=== PATIENT | male | born 1960 | race Caucasian/White ===

== ENCOUNTER 2022-08-02 23:35 | Inpatient (IN) | payer MEDICARE, MEDICAID ==
[~2022-08-02] VITALS: Ht 165.1 cm; Wt 90.3 kg
[2022-08-02 23:45] VITALS: BP 154/76
[2022-08-03 00:30] VITALS: BP 142/78
[2022-08-03] MEDS ORDERED: ONDANSETRON HCL 4MG/2ML INJ IV PRN (01:15)
[2022-08-03] MEDS ORDERED: OXYCODONE HCL 5MG TABLET PO PRN ×2 (01:15)
[2022-08-03] MEDS ORDERED: POLYETHYLENE GLYCOL 3350 (17GM) 1 DOSE PACK PO PRN (01:15)
[2022-08-03] MEDS ORDERED: POLYVINYL ALCOHOL OPHTH DROPS 15ML BOTHEYE PRN (01:15)
[2022-08-03] MEDS ORDERED: CYCLOPENTOLATE HCL 1% OPHTH DROPS 2ML RIGHTEYE SCH (01:15)
[2022-08-03] MEDS ORDERED: HYDRALAZINE HCL 10MG TABLET PO PRN (01:15)
[2022-08-03] MEDS ORDERED: ACETAMINOPHEN 325MG TABLET PO PRN (01:15)
[2022-08-03] MEDS ORDERED: DEXTROSE 50% WATER 50ML SYRINGE IV PRN (02:00)
[2022-08-03 06:40] LABS: CHLORIDE 97 mEq/L (98-107)
[2022-08-03 06:50] LABS: EOSINOPHILS % 3.1 % (0.0-5.0); HEMATOCRIT. 27.8 % (42.0-52.0); HEMOGLOBIN. 9.6 g/dL (14.0-18.0); LYMPHOCYTES % 32.9 % (20.0-50.0); MEAN CORPUSCULAR HEMOGLOBIN 33.2 pg (28.0-32.0); MEAN CORPUSCULAR VOLUME 96.5 fL (80.0-94.0); MEAN PLATELET VOLUME 7.6 fl (7.4-10.4); MONOCYTES % 7.5 % (2.0-8.0); NEUTROPHILS % 55.5 % (40.0-76.0); PLATELET 331 x1000/uL (130-400); RED BLOOD CELL COUNT 2.88 mill/uL (4.7-6.1); RED CELL DISTRIBUTION WIDTH 13.8 % (11.6-14.6)
[2022-08-03] MEDS: BLOOD SUGAR DIAGNOSTIC STRIP TEST SCH ×4 (06:55→21:00)
[2022-08-03 08:00] VITALS: BP 118/61
[2022-08-03] MEDS: INSULIN LISPRO 100 UNITS/ML SUBCUT SCH ×4 (08:30→21:34)
[2022-08-03] MEDS: SENNOSIDES 8.6MG TABLET PO SCH (09:00)
[2022-08-03] MEDS: DORZOLAM/TIMOLOL 2.23/0.68% OPHTH DROPS 10ML BOTHEYE SCH ×2 (09:00→21:00)
[2022-08-03] MEDS: CALCIUM ACETATE 667MG CAPSULE PO SCH ×3 (10:45→18:19)
[2022-08-03] MEDS: CYCLOPENTOLATE HCL 1% OPHTH DROPS 2ML RIGHTEYE SCH ×2 (10:47→21:21)
[2022-08-03] MEDS: DOCUSATE SODIUM 100MG CAPSULE PO SCH ×2 (10:47→18:19)
[2022-08-03] MEDS: HEPARIN 5000 UNITS/ML VIAL SUBCUT SCH ×2 (10:50→21:18)
[2022-08-03] MEDS: ATORVASTATIN CALCIUM 40MG TABLET PO SCH (10:51)
[2022-08-03 13:23] LABS: HEPATITIS B SURFACE ANTIGEN NEGATIVE
[2022-08-03] MEDS: SIMBRINZA OP SCH ×2 (14:24→18:20)
[2022-08-03 19:57] VITALS: BP 159/81
[2022-08-03] MEDS: MELATONIN 3MG TABLET PO PRN (21:58)
[2022-08-03] MEDS: INSULIN GLARGINE 100 UNITS/ML SUBCUT SCH (22:05)
[2022-08-04] VITALS (10 sets, daily range): BP systolic 124–157; BP diastolic 71–86
[2022-08-04 06:11] LABS: BASOPHILS % 1.1 % (0.0-2.0); EOSINOPHILS % 3.2 % (0.0-5.0); HEMATOCRIT. 25.7 % (42.0-52.0); HEMOGLOBIN. 8.8 g/dL (14.0-18.0); LYMPHOCYTES % 37.3 % (20.0-50.0); MEAN CORPUSCULAR HEMOGLOBIN 33.1 pg (28.0-32.0); MEAN CORPUSCULAR VOLUME 96.6 fL (80.0-94.0); MEAN PLATELET VOLUME 7.5 fl (7.4-10.4); MONOCYTES % 6.4 % (2.0-8.0); PLATELET 333 x1000/uL (130-400); RED BLOOD CELL COUNT 2.66 mill/uL (4.7-6.1); RED CELL DISTRIBUTION WIDTH 13.9 % (11.6-14.6)
[2022-08-04] MEDS: BLOOD SUGAR DIAGNOSTIC STRIP TEST SCH ×4 (06:30→21:00)
[2022-08-04 07:03] LABS: CHLORIDE 96 mEq/L (98-107)
[2022-08-04 07:12] LABS: FOLIC ACID (FOLATE) SERUM 13.4 ng/mL (>5.38)
[2022-08-04 07:36] LABS: TOTAL IRON BINDING CAPACITY 138 ug/dL (250-450)
[2022-08-04] MEDS: CYCLOPENTOLATE HCL 1% OPHTH DROPS 2ML LEFTEYE SCH ×2 (08:45→21:19)
[2022-08-04] MEDS: DORZOLAM/TIMOLOL 2.23/0.68% OPHTH DROPS 10ML BOTHEYE SCH ×2 (08:50→21:19)
[2022-08-04] MEDS: SIMBRINZA OP SCH ×3 (08:52→16:07)
[2022-08-04] MEDS: CYCLOPENTOLATE HCL 1% OPHTH DROPS 2ML RIGHTEYE SCH (08:53)
[2022-08-04] MEDS: DOCUSATE SODIUM 100MG CAPSULE PO SCH ×2 (08:54→16:07)
[2022-08-04] MEDS: CALCIUM ACETATE 667MG CAPSULE PO SCH ×3 (08:54→16:07)
[2022-08-04] MEDS: SENNOSIDES 8.6MG TABLET PO SCH (08:54)
[2022-08-04] MEDS: ATORVASTATIN CALCIUM 40MG TABLET PO SCH (08:54)
[2022-08-04] MEDS: HEPARIN 5000 UNITS/ML VIAL SUBCUT SCH ×2 (08:55→21:21)
[2022-08-04] MEDS: INSULIN LISPRO 100 UNITS/ML SUBCUT SCH ×4 (09:00→21:00)
[2022-08-04] MEDS: LACTULOSE 20G/30ML UDC PO SCH ×2 (16:07→17:00)
[2022-08-04] MEDS: MELATONIN 3MG TABLET PO PRN ×2 (21:20→21:21)
[2022-08-04] MEDS: EPOETIN ALFA-EPBX 4,000 UNIT/ML VIAL SUBCUT SCH (21:22)
[2022-08-04] MEDS: SENNOSIDES/DOCUSATE SOD 8.6/50MG TABLET PO SCH (21:23)
[2022-08-04] MEDS: INSULIN GLARGINE 100 UNITS/ML SUBCUT SCH (22:47)
[2022-08-05] MEDS: BLOOD SUGAR DIAGNOSTIC STRIP TEST SCH ×4 (06:30→21:47)
[2022-08-05] MEDS: LACTULOSE 20G/30ML UDC PO SCH ×3 (07:00→13:00)
[2022-08-05 07:41] LABS: EOSINOPHILS % 2.4 % (0.0-5.0); HEMATOCRIT. 26.8 % (42.0-52.0); HEMOGLOBIN. 9.2 g/dL (14.0-18.0); MEAN CORPUSCULAR HEMOGLOBIN 32.9 pg (28.0-32.0); MEAN CORPUSCULAR VOLUME 95.9 fL (80.0-94.0); MEAN PLATELET VOLUME 7.6 fl (7.4-10.4); MONOCYTES % 7.2 % (2.0-8.0); NEUTROPHILS % 55.4 % (40.0-76.0); PLATELET 324 x1000/uL (130-400); RED BLOOD CELL COUNT 2.79 mill/uL (4.7-6.1)
[2022-08-05 08:00] VITALS: BP 149/77
[2022-08-05] MEDS: CALCIUM ACETATE 667MG CAPSULE PO SCH ×3 (08:09→16:04)
[2022-08-05] MEDS: ATORVASTATIN CALCIUM 40MG TABLET PO SCH (08:09)
[2022-08-05] MEDS: DOCUSATE SODIUM 100MG CAPSULE PO SCH ×2 (08:09→16:04)
[2022-08-05] MEDS: HEPARIN 5000 UNITS/ML VIAL SUBCUT SCH ×2 (08:10→21:24)
[2022-08-05] MEDS: CYCLOPENTOLATE HCL 1% OPHTH DROPS 2ML LEFTEYE SCH ×2 (08:16→21:25)
[2022-08-05] MEDS: DORZOLAM/TIMOLOL 2.23/0.68% OPHTH DROPS 10ML BOTHEYE SCH ×2 (08:16→21:25)
[2022-08-05] MEDS: SIMBRINZA OP SCH ×3 (08:17→16:05)
[2022-08-05] MEDS: INSULIN LISPRO 100 UNITS/ML SUBCUT SCH ×3 (12:41→21:47)
[2022-08-05] MEDS: ERGOCALCIFEROL 50000UNITS CAPSULE PO SCH (12:42)
[2022-08-05 20:00] VITALS: BP 150/73
[2022-08-05] MEDS: SENNOSIDES/DOCUSATE SOD 8.6/50MG TABLET PO SCH (21:23)
[2022-08-05] MEDS: INSULIN GLARGINE 100 UNITS/ML SUBCUT SCH (21:46)
[2022-08-06] VITALS (11 sets, daily range): BP systolic 96–166; BP diastolic 59–87
[2022-08-06] MEDS: BLOOD SUGAR DIAGNOSTIC STRIP TEST SCH ×4 (05:48→21:10)
[2022-08-06] MEDS: DOCUSATE SODIUM 100MG CAPSULE PO SCH ×2 (09:00→17:00)
[2022-08-06] MEDS: INSULIN LISPRO 100 UNITS/ML SUBCUT SCH ×4 (09:00→21:00)
[2022-08-06] MEDS: ATORVASTATIN CALCIUM 40MG TABLET PO SCH (09:00)
[2022-08-06] MEDS: SIMBRINZA OP SCH ×3 (10:58→18:23)
[2022-08-06] MEDS: CYCLOPENTOLATE HCL 1% OPHTH DROPS 2ML LEFTEYE SCH ×2 (10:59→21:00)
[2022-08-06] MEDS: DORZOLAM/TIMOLOL 2.23/0.68% OPHTH DROPS 10ML BOTHEYE SCH ×2 (11:00→21:00)
[2022-08-06] MEDS: CALCIUM ACETATE 667MG CAPSULE PO SCH ×3 (11:01→18:23)
[2022-08-06] MEDS: HEPARIN 5000 UNITS/ML VIAL SUBCUT SCH ×2 (11:01→22:00)
[2022-08-06] MEDS: INSULIN GLARGINE 100 UNITS/ML SUBCUT SCH (21:46)
[2022-08-06] MEDS: SENNOSIDES/DOCUSATE SOD 8.6/50MG TABLET PO SCH (22:00)
[2022-08-06] MEDS: EPOETIN ALFA-EPBX 4,000 UNIT/ML VIAL SUBCUT SCH (22:00)
[2022-08-07] MEDS: MELATONIN 3MG TABLET PO PRN (00:02)
[2022-08-07] MEDS: INSULIN LISPRO 100 UNITS/ML SUBCUT SCH ×4 (06:54→21:53)
[2022-08-07] MEDS: BLOOD SUGAR DIAGNOSTIC STRIP TEST SCH ×4 (06:54→21:54)
[2022-08-07 07:52] LABS: BASOPHILS % 1.3 % (0.0-2.0); EOSINOPHILS % 2.8 % (0.0-5.0); HEMATOCRIT. 26.9 % (42.0-52.0); HEMOGLOBIN. 9.1 g/dL (14.0-18.0); MEAN CORPUSCULAR HEMOGLOBIN 32.7 pg (28.0-32.0); MEAN CORPUSCULAR VOLUME 96.4 fL (80.0-94.0); MEAN PLATELET VOLUME 7.6 fl (7.4-10.4); NEUTROPHILS % 52.9 % (40.0-76.0); PLATELET 310 x1000/uL (130-400); RED BLOOD CELL COUNT 2.79 mill/uL (4.7-6.1); RED CELL DISTRIBUTION WIDTH 13.7 % (11.6-14.6)
[2022-08-07 08:00] VITALS: BP 143/72
[2022-08-07] MEDS: DOCUSATE SODIUM 100MG CAPSULE PO SCH ×2 (08:26→17:00)
[2022-08-07] MEDS: SIMBRINZA OP SCH ×3 (11:30→17:00)
[2022-08-07] MEDS: CYCLOPENTOLATE HCL 1% OPHTH DROPS 2ML LEFTEYE SCH ×2 (11:31→21:40)
[2022-08-07] MEDS: DORZOLAM/TIMOLOL 2.23/0.68% OPHTH DROPS 10ML BOTHEYE SCH ×2 (11:31→21:40)
[2022-08-07] MEDS: ATORVASTATIN CALCIUM 40MG TABLET PO SCH (11:33)
[2022-08-07] MEDS: CALCIUM ACETATE 667MG CAPSULE PO SCH ×3 (11:33→17:00)
[2022-08-07] MEDS: HEPARIN 5000 UNITS/ML VIAL SUBCUT SCH ×2 (11:33→21:39)
[2022-08-07 19:54] VITALS: BP 142/68
[2022-08-07] MEDS: SENNOSIDES/DOCUSATE SOD 8.6/50MG TABLET PO SCH (21:39)
[2022-08-07] MEDS: INSULIN GLARGINE 100 UNITS/ML SUBCUT SCH (21:54)
[2022-08-08] VITALS (11 sets, daily range): BP systolic 99–179; BP diastolic 63–90
[2022-08-08 06:09] LABS: EOSINOPHILS % 2.6 % (0.0-5.0); HEMATOCRIT. 26.9 % (42.0-52.0); HEMOGLOBIN. 9.2 g/dL (14.0-18.0); LYMPHOCYTES % 38.6 % (20.0-50.0); MEAN CORPUSCULAR HEMOGLOBIN 33.2 pg (28.0-32.0); MEAN CORPUSCULAR VOLUME 96.6 fL (80.0-94.0); MEAN PLATELET VOLUME 7.5 fl (7.4-10.4); MONOCYTES % 8.5 % (2.0-8.0); NEUTROPHILS % 49.3 % (40.0-76.0); PLATELET 315 x1000/uL (130-400); RED BLOOD CELL COUNT 2.78 mill/uL (4.7-6.1); RED CELL DISTRIBUTION WIDTH 14.1 % (11.6-14.6)
[2022-08-08] MEDS: BLOOD SUGAR DIAGNOSTIC STRIP TEST SCH ×3 (06:46→20:33)
[2022-08-08] MEDS: INSULIN LISPRO 100 UNITS/ML SUBCUT SCH ×4 (06:46→21:05)
[2022-08-08] MEDS: CALCIUM ACETATE 667MG CAPSULE PO SCH ×3 (09:20→17:50)
[2022-08-08] MEDS: ATORVASTATIN CALCIUM 40MG TABLET PO SCH (09:20)
[2022-08-08] MEDS: DOCUSATE SODIUM 100MG CAPSULE PO SCH ×2 (09:20→17:49)
[2022-08-08] MEDS: HEPARIN 5000 UNITS/ML VIAL SUBCUT SCH ×2 (09:21→20:55)
[2022-08-08] MEDS: CYCLOPENTOLATE HCL 1% OPHTH DROPS 2ML LEFTEYE SCH ×2 (09:30→20:56)
[2022-08-08] MEDS: DORZOLAM/TIMOLOL 2.23/0.68% OPHTH DROPS 10ML BOTHEYE SCH ×2 (09:30→20:56)
[2022-08-08] MEDS: SIMBRINZA OP SCH ×3 (09:30→17:50)
[2022-08-08] MEDS: SENNOSIDES/DOCUSATE SOD 8.6/50MG TABLET PO SCH (20:55)
[2022-08-08] MEDS: INSULIN GLARGINE 100 UNITS/ML SUBCUT SCH (21:04)
[2022-08-09] MEDS: BLOOD SUGAR DIAGNOSTIC STRIP TEST SCH ×4 (06:30→21:00)
[2022-08-09] MEDS: INSULIN LISPRO 100 UNITS/ML SUBCUT SCH ×4 (07:51→22:28)
[2022-08-09] MEDS: DOCUSATE SODIUM 100MG CAPSULE PO SCH ×2 (09:30→17:54)
[2022-08-09] MEDS: ATORVASTATIN CALCIUM 40MG TABLET PO SCH (09:30)
[2022-08-09] MEDS: SIMBRINZA OP SCH ×3 (09:30→17:48)
[2022-08-09] MEDS: CALCIUM ACETATE 667MG CAPSULE PO SCH ×3 (09:30→17:47)
[2022-08-09] MEDS: CYCLOPENTOLATE HCL 1% OPHTH DROPS 2ML LEFTEYE SCH ×2 (09:31→22:20)
[2022-08-09] MEDS: DORZOLAM/TIMOLOL 2.23/0.68% OPHTH DROPS 10ML BOTHEYE SCH ×2 (09:31→22:21)
[2022-08-09] MEDS: HEPARIN 5000 UNITS/ML VIAL SUBCUT SCH ×2 (09:32→22:19)
[2022-08-09 20:00] VITALS: BP 154/76
[2022-08-09] MEDS: SENNOSIDES/DOCUSATE SOD 8.6/50MG TABLET PO SCH (22:18)
[2022-08-09] MEDS: EPOETIN ALFA-EPBX 4,000 UNIT/ML VIAL SUBCUT SCH (22:19)
[2022-08-09] MEDS: INSULIN GLARGINE 100 UNITS/ML SUBCUT SCH (22:31)
[2022-08-10] MEDS: INSULIN LISPRO 100 UNITS/ML SUBCUT SCH ×4 (06:04→21:25)
[2022-08-10] MEDS: BLOOD SUGAR DIAGNOSTIC STRIP TEST SCH ×4 (06:04→21:15)
[2022-08-10 06:34] LABS: BASOPHILS % 1.2 % (0.0-2.0); HEMATOCRIT. 26.7 % (42.0-52.0); HEMOGLOBIN. 9.2 g/dL (14.0-18.0); LYMPHOCYTES % 38.8 % (20.0-50.0); MEAN CORPUSCULAR HEMOGLOBIN 33.1 pg (28.0-32.0); MEAN CORPUSCULAR VOLUME 96.4 fL (80.0-94.0); MEAN PLATELET VOLUME 7.4 fl (7.4-10.4); MONOCYTES % 8.4 % (2.0-8.0); NEUTROPHILS % 48.6 % (40.0-76.0); PLATELET 307 x1000/uL (130-400); RED BLOOD CELL COUNT 2.77 mill/uL (4.7-6.1); RED CELL DISTRIBUTION WIDTH 13.8 % (11.6-14.6)
[2022-08-10 08:00] VITALS: BP 145/68
[2022-08-10 08:16] LABS: PHOSPHORUS 3.2 mg/dL (2.5-4.9)
[2022-08-10] MEDS: SIMBRINZA OP SCH ×3 (08:24→18:00)
[2022-08-10] MEDS: DOCUSATE SODIUM 100MG CAPSULE PO SCH ×2 (08:24→17:57)
[2022-08-10] MEDS: ATORVASTATIN CALCIUM 40MG TABLET PO SCH (08:24)
[2022-08-10] MEDS: DORZOLAM/TIMOLOL 2.23/0.68% OPHTH DROPS 10ML BOTHEYE SCH ×2 (08:24→21:20)
[2022-08-10] MEDS: CYCLOPENTOLATE HCL 1% OPHTH DROPS 2ML LEFTEYE SCH ×2 (08:24→21:20)
[2022-08-10] MEDS: CALCIUM ACETATE 667MG CAPSULE PO SCH ×3 (08:25→18:00)
[2022-08-10] MEDS: HEPARIN 5000 UNITS/ML VIAL SUBCUT SCH ×2 (08:25→21:20)
[2022-08-10] MEDS: SENNOSIDES/DOCUSATE SOD 8.6/50MG TABLET PO SCH (21:20)
[2022-08-10 22:28] VITALS: BP 158/68
[2022-08-10 22:30] VITALS: BP 187/90
[2022-08-10 23:00] VITALS: BP 154/92
[2022-08-10] MEDS: INSULIN GLARGINE 100 UNITS/ML SUBCUT SCH (23:00)
[2022-08-10 23:30] VITALS: BP 143/85
[2022-08-11] VITALS (7 sets, daily range): BP systolic 110–152; BP diastolic 69–79
[2022-08-11] MEDS: INSULIN LISPRO 100 UNITS/ML SUBCUT SCH ×4 (09:00→22:27)
[2022-08-11] MEDS: ATORVASTATIN CALCIUM 40MG TABLET PO SCH (09:00)
[2022-08-11] MEDS: DOCUSATE SODIUM 100MG CAPSULE PO SCH ×2 (09:00→17:00)
[2022-08-11] MEDS: CYCLOPENTOLATE HCL 1% OPHTH DROPS 2ML LEFTEYE SCH ×2 (09:00→21:50)
[2022-08-11] MEDS: DORZOLAM/TIMOLOL 2.23/0.68% OPHTH DROPS 10ML BOTHEYE SCH ×2 (09:00→21:50)
[2022-08-11] MEDS: HEPARIN 5000 UNITS/ML VIAL SUBCUT SCH ×2 (09:00→21:49)
[2022-08-11] MEDS: SIMBRINZA OP SCH ×3 (09:00→17:00)
[2022-08-11] MEDS: CALCIUM ACETATE 667MG CAPSULE PO SCH ×3 (09:00→17:00)
[2022-08-11] MEDS: SENNOSIDES/DOCUSATE SOD 8.6/50MG TABLET PO SCH (21:49)
[2022-08-11] MEDS: BLOOD SUGAR DIAGNOSTIC STRIP TEST SCH (21:49)
[2022-08-11] MEDS: INSULIN GLARGINE 100 UNITS/ML SUBCUT SCH (22:27)
[2022-08-12] VITALS (11 sets, daily range): BP systolic 111–152; BP diastolic 61–88
[2022-08-12] MEDS: BLOOD SUGAR DIAGNOSTIC STRIP TEST SCH ×4 (06:49→21:00)
[2022-08-12] MEDS: INSULIN LISPRO 100 UNITS/ML SUBCUT SCH ×5 (06:54→22:03)
[2022-08-12] MEDS: DORZOLAM/TIMOLOL 2.23/0.68% OPHTH DROPS 10ML BOTHEYE SCH ×2 (09:00→21:00)
[2022-08-12] MEDS: SIMBRINZA OP SCH ×3 (09:22→17:00)
[2022-08-12] MEDS: DOCUSATE SODIUM 100MG CAPSULE PO SCH ×2 (09:24→17:00)
[2022-08-12] MEDS: ATORVASTATIN CALCIUM 40MG TABLET PO SCH (09:24)
[2022-08-12] MEDS: CALCIUM ACETATE 667MG CAPSULE PO SCH ×3 (09:24→17:00)
[2022-08-12] MEDS: CYCLOPENTOLATE HCL 1% OPHTH DROPS 2ML LEFTEYE SCH ×3 (09:25→21:51)
[2022-08-12] MEDS: HEPARIN 5000 UNITS/ML VIAL SUBCUT SCH ×2 (09:25→21:49)
[2022-08-12] MEDS: ERGOCALCIFEROL 50000UNITS CAPSULE PO SCH (12:00)
[2022-08-12] MEDS: SENNOSIDES/DOCUSATE SOD 8.6/50MG TABLET PO SCH (21:48)
[2022-08-12] MEDS: INSULIN GLARGINE 100 UNITS/ML SUBCUT SCH (22:49)
[2022-08-13] MEDS: BLOOD SUGAR DIAGNOSTIC STRIP TEST SCH ×3 (06:30→17:12)
[2022-08-13 08:00] VITALS: BP 108/55
[2022-08-13] MEDS: SIMBRINZA OP SCH ×3 (08:42→16:44)
[2022-08-13] MEDS: DOCUSATE SODIUM 100MG CAPSULE PO SCH ×2 (08:43→16:43)
[2022-08-13] MEDS: CALCIUM ACETATE 667MG CAPSULE PO SCH ×3 (08:43→16:43)
[2022-08-13] MEDS: ATORVASTATIN CALCIUM 40MG TABLET PO SCH (08:43)
[2022-08-13] MEDS: DORZOLAM/TIMOLOL 2.23/0.68% OPHTH DROPS 10ML BOTHEYE SCH (08:43)
[2022-08-13] MEDS: HEPARIN 5000 UNITS/ML VIAL SUBCUT SCH (08:44)
[2022-08-13] MEDS: INSULIN LISPRO 100 UNITS/ML SUBCUT SCH ×2 (13:00→17:12)
== END 2022-08-13 19:55 | DRG 562 ==
PROVIDERS: ADMIT Physical Medicine & Rehabilitation Spinal Cord Injury Medicine; ATTEND Internal Medicine Nephrology
PROC: 5A1D70Z Performance of Urinary Filtration, Intermittent, Less than 6 Hours Per Day (ICD-10-PCS; principal; 2022-08-04)
PROC: 5A1D70Z Performance of Urinary Filtration, Intermittent, Less than 6 Hours Per Day (ICD-10-PCS; 2022-08-06)
PROC: 5A1D70Z Performance of Urinary Filtration, Intermittent, Less than 6 Hours Per Day (ICD-10-PCS; 2022-08-08)
PROC: 5A1D70Z Performance of Urinary Filtration, Intermittent, Less than 6 Hours Per Day (ICD-10-PCS; 2022-08-10)
PROC: 5A1D70Z Performance of Urinary Filtration, Intermittent, Less than 6 Hours Per Day (ICD-10-PCS; 2022-08-12)
DX: S82.851A Displaced trimalleolar fracture of right lower leg, initial encounter for closed fracture (principal); N18.6 End stage renal disease; I12.0 Hypertensive chronic kidney disease with stage 5 chronic kidney disease or end stage renal disease; G62.9 Polyneuropathy, unspecified; D64.9 Anemia, unspecified; E11.22 Type 2 diabetes mellitus with diabetic chronic kidney disease; E11.319 Type 2 diabetes mellitus with unspecified diabetic retinopathy without macular edema; E11.51 Type 2 diabetes mellitus with diabetic peripheral angiopathy without gangrene; E55.9 Vitamin D deficiency, unspecified; E78.5 Hyperlipidemia, unspecified; E87.5 Hyperkalemia; I95.1 Orthostatic hypotension; E11.40 Type 2 diabetes mellitus with diabetic neuropathy, unspecified; F39 Unspecified mood [affective] disorder; G47.00 Insomnia, unspecified; K59.00 Constipation, unspecified; M85.80 Other specified disorders of bone density and structure, unspecified site; R26.9 Unspecified abnormalities of gait and mobility; W18.39XA Other fall on same level, initial encounter; E11.621 Type 2 diabetes mellitus with foot ulcer; R42 Dizziness and giddiness; R53.81 Other malaise; Z20.822 Contact with and (suspected) exposure to COVID-19; Z82.49 Family history of ischemic heart disease and other diseases of the circulatory system; Z83.3 Family history of diabetes mellitus; Z91.81 History of falling; Z99.2 Dependence on renal dialysis; Z79.4 Long term (current) use of insulin; Z89.421 Acquired absence of other right toe(s); Z79.899 Other long term (current) drug therapy; Y93.89 Activity, other specified; Y92.89 Other specified places as the place of occurrence of the external cause; Y99.8 Other external cause status
CPT/HCPCS: 36415; 71045; 73610; 73630; 73718; 80048; 80053; 82306; 82607; 82728; 82746; 82962; 83036; 83540; 83550; 84100; 84134; 84443; 85025; 85651; 86705; 86706; 86709; 86803; 87340; 87426; 90935; 92523; 93306; 93970; 97110; 97112; 97116; 97162; 97166; 97530; 97535; 97542; C1893; J0885; J1644; J1815

== ENCOUNTER 2023-05-04 18:00 | Emergency (ER) | payer MEDICARE, MEDICAID ==
[~2023-05-04] VITALS: Ht 165.1 cm; Wt 86.0 kg
[2023-05-04 18:11] VITALS: BP 147/75; PULSE 63; RESP 16; TEMP 98.3; O2SAT 99
[2023-05-04 21:55] LABS: BASOPHILS % 1.1 % (0.0-2.0); EOSINOPHILS % 3.3 % (0.0-5.0); HEMATOCRIT. 34.6 % (42.0-52.0); HEMOGLOBIN. 11.9 g/dL (14.0-18.0); LYMPHOCYTES % 32.3 % (20.0-50.0); MEAN CORPUSCULAR HEMOGLOBIN 30.2 pg (28.0-32.0); MEAN CORPUSCULAR HGB CONC 34.3 g/dL (31.0-37.0); MEAN CORPUSCULAR VOLUME 87.8 fL (80.0-94.0); MEAN PLATELET VOLUME 7.7 fl (7.4-10.4); MONOCYTES % 6.7 % (2.0-8.0); NEUTROPHILS % 56.6 % (40.0-76.0); PLATELET 214 x1000/uL (130-400); RED BLOOD CELL COUNT 3.94 mill/uL (4.7-6.1)
[2023-05-04 22:11] LABS: INR 1.1; PROTHROMBIN TIME 12.1 sec (9.6-11.0)
[2023-05-04 22:16] LABS: ALANINE AMINOTRANSFERASE 17 IU/L (10-49); ALBUMIN 4.4 g/dL (3.2-4.8); ASPARTATE AMINOTRANSFERASE 20 IU/L (<34); BILIRUBIN TOTAL 0.3 mg/dL (0.1-1.0); CALCIUM 8.8 mg/dL (8.7-10.4); CARBON DIOXIDE 29 mEq/L (21-32); CHLORIDE 93 mEq/L (98-107); GLUCOSE 219 mg/dL (70-105); POTASSIUM 3.8 mEq/L (3.5-5.1); PROTEIN TOTAL 7.1 g/dL (6.0-8.3); SODIUM 130 mEq/L (136-145); UREA NITROGEN BLOOD 27 mg/dL (9-23)
[2023-05-04 22:19] LABS: CREATININE 5.7 mg/dL (0.6-1.3)
== END 2023-05-05 00:18 | disposition left against medical advice (07) ==
LOC: ER 18:00
DX: I12.0 Hypertensive chronic kidney disease with stage 5 chronic kidney disease or end stage renal disease (principal); E11.22 Type 2 diabetes mellitus with diabetic chronic kidney disease; N18.6 End stage renal disease; Z99.2 Dependence on renal dialysis
CPT/HCPCS: 36415; 71045; 80053; 83605; 83880; 84145; 85025; 87186; 93005; 99285

== ENCOUNTER → 2023-08-16 | Day surgery (SDC) | payer MEDICARE, MEDICAID ==
[~2023-08-16] VITALS: Ht 165.1 cm; Wt 86.2 kg
[~2023-08-16] MED LIST: ASPI-1497 PO; ATOR10TA69 PO; BACITRACIN 14GM TUBE TOP ONE; BUPIVACAINE HCL/PF 0.5% (5MG/ML) 10ML ONE; CALC667C PO; CARV6.2548 PO; CEFAZOLIN SODIUM 1000MG/VIAL ONE; DEXAMETHASONE 4MG/ML 1ML VIAL ONE; FENTANYL CITRATE/PF 50MCG/ML 2ML VIAL IV PRN; FENTANYL CITRATE/PF 50MCG/ML 2ML VIAL ONE; GLYCOPYRROLATE 0.2 MG/ML 2ML VIAL ONE; HEPARIN SODIUM 1,000 UNIT/1ML VIAL IV ONE; HYDROCODONE/ACETAMINOPHEN 5/325MG TABLET PO PRN; HYDROMORPHONE HCL/PF 2MG/ML CPJ IV PRN; INSU100I28 SQ; INSU100V43 SQ; LIDOCAINE HCL 1% 10 MG/ML 10ML VIAL ONE; LIDOCAINE HCL/PF 1% 10 MG/ML 5ML VIAL ONE; ONDANSETRON HCL 4MG/2ML INJ IV PRN; ONDANSETRON HCL 4MG/2ML INJ ONE; PROPOFOL 200MG/20ML VIAL IV ONE; PROTAMINE SULFATE 10MG/ML VIAL 5ML IV ONE; THROMBIN (BOVINE) 5000 UNITS/VIAL TOP ONE; VANCOMYCIN 1G PREMIX 200 ML IV NR
[2023-08-16 08:34] LABS: BASOPHILS % 1.3 % (0.0-2.0); EOSINOPHILS % 5.6 % (0.0-5.0); HEMATOCRIT. 31.7 % (42.0-52.0); HEMOGLOBIN. 11.3 g/dL (14.0-18.0); LYMPHOCYTES % 29.6 % (20.0-50.0); MEAN CORPUSCULAR HEMOGLOBIN 32.9 pg (28.0-32.0); MEAN CORPUSCULAR HGB CONC 35.6 g/dL (31.0-37.0); MEAN CORPUSCULAR VOLUME 92.3 fL (80.0-94.0); MEAN PLATELET VOLUME 7.9 fl (7.4-10.4); MONOCYTES % 6.2 % (2.0-8.0); NEUTROPHILS % 57.3 % (40.0-76.0); PLATELET 210 x1000/uL (130-400); RED BLOOD CELL COUNT 3.44 mill/uL (4.7-6.1); RED CELL DISTRIBUTION WIDTH 13.7 % (11.6-14.6); WHITE BLOOD COUNT 6.3 x1000/uL (4.5-11.0)
[2023-08-16 08:42] LABS: POTASSIUM 4.4 mEq/L (3.5-5.1)
[2023-08-16 08:43] LABS: CALCIUM 8.6 mg/dL (8.7-10.4)
[2023-08-16 08:52] LABS: CREATININE 6.6 mg/dL (0.6-1.3); INR 1.2; PARTIAL THROMBOPLASTIN TIME 28.4 sec (23.4-31.0); PROTHROMBIN TIME 12.7 sec (9.6-11.0)
[2023-08-16] MEDS: SODIUM CHLORIDE 0.9% 500 ML IV ONE (09:20)
== END | disposition home or self-care (01) ==
LOC: OR 07:59
PROVIDERS: ATTEND Student in an Organized Health Care Education/Training Program
DX: I12.0 Hypertensive chronic kidney disease with stage 5 chronic kidney disease or end stage renal disease (principal); E11.22 Type 2 diabetes mellitus with diabetic chronic kidney disease; N18.6 End stage renal disease; E78.5 Hyperlipidemia, unspecified; Z99.2 Dependence on renal dialysis; Z79.82 Long term (current) use of aspirin; Z79.4 Long term (current) use of insulin; Z79.899 Other long term (current) drug therapy; Z98.890 Other specified postprocedural states; Z83.3 Family history of diabetes mellitus; Z80.0 Family history of malignant neoplasm of digestive organs
CPT/HCPCS: 36830; 93005; 80048; 85025; 85610; 85730; 36415; C1768; J3010; J3490 ×5; J0690; J1100; J1644; J2405; J2704; J2720; J3370

== ENCOUNTER → 2023-10-27 | Day surgery (SDC) | payer MEDICARE, MEDICAID ==
[~2023-10-27] VITALS: Ht 165.1 cm; Wt 86.2 kg
[~2023-10-27] MED LIST changes: +ACETAMINOPHEN 325MG TABLET PO PRN; -ATOR10TA69 PO; +ATOR40TA70 PO; -CEFAZOLIN SODIUM 1000MG/VIAL ONE; -DEXAMETHASONE 4MG/ML 1ML VIAL ONE; -FENTANYL CITRATE/PF 50MCG/ML 2ML VIAL IV PRN; -FENTANYL CITRATE/PF 50MCG/ML 2ML VIAL ONE; +FENTANYL CITRATE/PF 50MCG/ML 5ML VIAL ONE; -GLYCOPYRROLATE 0.2 MG/ML 2ML VIAL ONE; -HYDROCODONE/ACETAMINOPHEN 5/325MG TABLET PO PRN; +HYDROMORPHONE HCL/PF 1MG/ML INJ IV PRN; -HYDROMORPHONE HCL/PF 2MG/ML CPJ IV PRN; +IOHEXOL-300 100 ML BOTTLE ONE; +LABETALOL 5MG/ML 4ML INJ IV PRN; -LIDOCAINE HCL/PF 1% 10 MG/ML 5ML VIAL ONE; +MEPERIDINE HCL/PF 25MG/ML CPJ IV PRN; +MIDAZOLAM HCL 2 MG/2 ML VIAL ONE; -ONDANSETRON HCL 4MG/2ML INJ ONE; +PATI8.4P PO; +POLYMYXIN B SULFATE 500000 UNITS/VIAL ONE; -PROTAMINE SULFATE 10MG/ML VIAL 5ML IV ONE; +SODIUM CHLORIDE 0.9% 500 ML IV ONE; -VANCOMYCIN 1G PREMIX 200 ML IV NR
[2023-10-27 10:23] LABS: INR 1.2; PARTIAL THROMBOPLASTIN TIME 27.3 sec (23.4-31.0); PROTHROMBIN TIME 12.7 sec (9.6-11.0)
[2023-10-27 10:25] LABS: BASOPHILS % 1.2 % (0.0-2.0); EOSINOPHILS % 4.2 % (0.0-5.0); HEMATOCRIT. 39.3 % (42.0-52.0); LYMPHOCYTES % 32.9 % (20.0-50.0); MEAN CORPUSCULAR HEMOGLOBIN 29.9 pg (28.0-32.0); MEAN CORPUSCULAR VOLUME 90.6 fL (80.0-94.0); MEAN PLATELET VOLUME 8.5 fl (7.4-10.4); MONOCYTES % 7.1 % (2.0-8.0); NEUTROPHILS % 54.6 % (40.0-76.0); PLATELET 149 x1000/uL (130-400); RED BLOOD CELL COUNT 4.34 mill/uL (4.7-6.1); RED CELL DISTRIBUTION WIDTH 15.1 % (11.6-14.6); WHITE BLOOD COUNT 6.6 x1000/uL (4.5-11.0)
[2023-10-27 10:29] LABS: POTASSIUM 4.9 mEq/L (3.5-5.1)
[2023-10-27 10:30] LABS: CALCIUM 9.2 mg/dL (8.7-10.4)
[2023-10-27 11:02] LABS: CREATININE 8.7 mg/dL (0.6-1.3)
== END | disposition home or self-care (01) ==
LOC: OR 09:33
PROVIDERS: ATTEND Student in an Organized Health Care Education/Training Program
DX: I12.0 Hypertensive chronic kidney disease with stage 5 chronic kidney disease or end stage renal disease (principal); N18.6 End stage renal disease; E11.22 Type 2 diabetes mellitus with diabetic chronic kidney disease; I25.10 Atherosclerotic heart disease of native coronary artery without angina pectoris; E78.5 Hyperlipidemia, unspecified; Z79.82 Long term (current) use of aspirin; Z79.4 Long term (current) use of insulin; Z79.899 Other long term (current) drug therapy; Z98.890 Other specified postprocedural states; Z80.0 Family history of malignant neoplasm of digestive organs; Z83.3 Family history of diabetes mellitus
CPT/HCPCS: 36589; 76000; 71045; 80048; 82962; 85025; 85610; 85730; 36415; 88300; 93005; J3010; Q9967; J3490 ×4; J1644; J2250; J2704